=== PATIENT | male | born 1950 | race Caucasian/White ===

== ENCOUNTER 2018-11-30 12:12 | Inpatient (IN) | payer OTHER ==
--- NOTE | 2018-11-30 13:44 | HP ---
CIWA Score Nausea/Vomitin Muscle Tremors: 2 Anxiety: 2 Agitation: 2 Paroxysmal Sweats: 1-Minimal Palms Moist Orientation: 0-Oriented Tacttile Disturbances: 1-Very Mild Itch/Numbness Auditory Disturbances: 1-Very Mild Visual Disturbances: 0-None Headache: 2-Mild CIWA-Ar Total Score: 13 - Admission Criteria OASAS Guidelines: Admission for Medically Managed Detox: Requires at least one of the followin. CIWA greater than 12 2. Seizures within the past 24 hours 3. Delirium tremens within the past 24 hours 4. Hallucinations within the past 24 hours 5. Acute intervention needed for co occurring medical disorder 6. Acute intervention needed for co occurring psychiatric disorder 7. Severe withdrawal that cannot be handled at a lower level of care (continued vomiting, continued diarrhea, abnormal vital signs) requiring intravenous medication and/or fluids 8. Admission ROS BHS - HPI Chief Complaint: i need help to stop drinking alcohol Allergies/Adverse Reactions: Allergies Allergy/AdvReac Type Severity Reaction Status Date / Time No Known Allergies Allergy Verified 11/30/18 15:24 History of Present Illness: this 67 years old male with alcohol dependence seeking detox,withdrawal symptom, seeking detox, last detox 25 years ago unknown facility [facility]tp 35 mgs/day,last medicated today s/p angioplasty with stent 24 years ago weight loss nicotine dependence 1 pack/day anxiety and depression Exam Limitations: No Limitations - Ebola screening Have you traveled outside of the country in the last 21 days: No Have you had contact with anyone from an Ebola affected area: No - Review of Systems Constitutional: Loss of Appetite, Malaise, Night Sweats, Changes in sleep, Weakness, Unintentional Wgt. Loss EENT: reports: Nose Congestion Respiratory: reports: No Symptoms reported Cardiac: reports: No Symptoms Reported GI: reports: Nausea, Poor Appetite, Abdominal cramping : reports: No Symptoms Reported Integumentary: reports: Dryness Neuro: reports: Headache, Tremors Endocrine: reports: No Symptoms Reported Hematology: reports: No Symptoms Reported, Other (hiv) Psychiatric: reports: No Sypmtoms Reported, Judgement Intact, Mood/Affect Appropiate, Orientated x3, Anxious, Depressed Patient History - Patient Medical History Hx Anemia: No Hx Asthma: No Hx Chronic Obstructive Pulmonary Disease (COPD): No Hx Cancer: No Hx Cardiac Disorders: Yes (s/p angioplasty with stent 24 years ago) Hx Congestive Heart Failure: No Hx Hypertension: No Hx Hypercholesterolemia: No Hx Pacemaker: No HX Cerebrovascular Accident: No Hx Seizures: No Hx Dementia: No Hx Diabetes: No Hx Gastrointestinal Disorders: No Hx Liver Disease: Yes (hepatitis c treated) Hx Genitourinary Disorders: No Hx Sexually Transmitted Disorders: No Hx Renal Disease (ESRD): No Hx Thyroid Disease: No Hx Human Immunodeficiency Virus (HIV): Yes (positive on med) Hx Hepatitis C: Yes (treated) Hx Depression: Yes (anxiety) Hx Suicide Attempt: No Hx Bipolar Disorder: No Hx Schizophrenia: No Other Medical History: no sucidal,no homicidal - PPD History Previous Implant?: Yes Documented Results: Positive w/o proof Implanted On Prior [facility] Admission?: No PPD to be Administered?: No - Smoking Cessation Smoking history: Current every day smoker Have you smoked in the past 12 months: Yes Aproximately how many cigarettes per day: 20 Cigars Per Day: 0 Hx Chewing Tobacco Use: No Initiated information on smoking cessation: Yes 'Breaking Loose' booklet given: 11/30/18 - Substance & Tx. History Hx Alcohol Use: Yes Hx Substance Use: No Substance Use Type: Alcohol Hx Substance Use Treatment: Yes (25 years ago,did not recall facility) - Substances Abused Alcohol Route: Oral Frequency: Daily Amount used: 2pints of rum/4 of 24 ozs of beer Age of first use: 13 Date of Last Use: 11/29/18 Family Disease History - Family Disease History Family Disease History: Other: Father (alcohol,) Admission Physical Exam BHS - Vital Signs Vital Signs: Vital Signs Temperature 98.0 F 11/30/18 14:43 Pulse Rate 86 11/30/18 14:43 Respiratory Rate 16 11/30/18 14:43 Blood Pressure 148/92 11/30/18 14:43 O2 Sat by Pulse Oximetry (%) - Physical General Appearance: Yes: Moderate Distress, Tremorous, Irritable, Sweating, Anxious HEENTM: Yes: Normal ENT Inspection, TODD, Pharynx Normal Respiratory: Yes: Lungs Clear, Normal Breath Sounds, No Respiratory Distress Neck: Yes: Within Normal Limits, Supple, Trachea in good position Breast: Yes: Within Normal Limits Cardiology: Yes: Within Normal Limits, Regular Rhythm, Regular Rate, S1, S2 Abdominal: Yes: Within Normal Limits, Normal Bowel Sounds, Non Tender, Soft Genitourinary: Yes: Within Normal Limits Back: Yes: Muscle Spasm Musculoskeletal: Yes: Back pain, Muscle Pain Extremities: Yes: Tremors Neurological: Yes: pediatric acute care unit nurse II-XII NML intact, Fully Oriented, Alert, Motor Strength 5/5 Integumentary: Yes: Dry Lymphatic: Yes: Within Normal Limits - Diagnostic (1) Alcohol dependence with uncomplicated withdrawal Current Visit: Yes Status: Acute (2) Syncope Current Visit: Yes Status: Acute (3) Dehydration Current Visit: Yes Status: Acute (4) Weight loss Current Visit: Yes Status: Acute (5) Nicotine dependence Current Visit: Yes Status: Acute (6) Hepatitis C Current Visit: Yes Status: Acute (7) Methadone maintenance therapy patient Current Visit: Yes Status: Acute (8) Positive PPD, treated Current Visit: Yes Status: Acute (9) Insomnia secondary to depression with anxiety Current Visit: Yes Status: Acute (10) CAD (coronary artery disease) Current Visit: Yes Status: Acute (11) Status post angioplasty with stent Current Visit: Yes Status: Acute (12) HIV (human immunodeficiency virus infection) Current Visit: Yes Status: Acute Cleared for Admission S - Detox or Rehab [facility] Level of Care: Medically Managed Detox Regimen/Protocol: Librium Inpatient Rehab Admission - Rehab Decision to Admit Inpatient rehab admission?: No
[2018-11-30] MEDS ORDERED: MAGNESIUM HYDROX 2400MG/30ML ORAL SUSPENSION 30 ML CUP PO PRN (13:53)
[2018-11-30] MEDS ORDERED: MELATONIN 5 MG TABLETS PO PRN (13:53)
[2018-11-30] MEDS ORDERED: MENTHOL/PHENOL 1 EACH UD MM PRN (13:53)
[2018-11-30] MEDS ORDERED: MAG HYDROX/AL HYDROX/SIMETH 30 ML UNIT-DOSE CUP PO PRN (13:53)
[2018-11-30] MEDS ORDERED: ACETAMINOPHEN 325 MG TABLET (FP) PO PRN ×2 (13:53)
[2018-11-30] MEDS ORDERED: MAGNESIUM CITRATE 300 ML BOTTLE PO PRN (13:53)
[2018-11-30] MEDS ORDERED: chlordiazePOXIDE HCL 25 MG CAPSULE PO PRN (13:53)
[2018-11-30] MEDS ORDERED: METHOCARBAMOL 500 MG TABLET PO PRN (13:53)
[2018-11-30] MEDS ORDERED: BISMUTH SUBSALICYLATE 262 MG/15 ML BTL PO PRN (13:53)
[2018-11-30] MEDS ORDERED: hydrOXYzine PAMOATE 25 MG CAPSULE (FP) PO PRN (13:53)
[2018-11-30] MEDS ORDERED: IBUPROFEN 400 MG TABLET (FP) PO PRN (13:53)
[2018-11-30 15:08] VITALS: BMI 16.7
[2018-11-30] MEDS: NICOTINE 21 MG/24 HOURS TOPICAL PATCH TD SCH (15:34)
[2018-11-30] MEDS: chlordiazePOXIDE HCL 25 MG CAPSULE PO SCH ×2 (17:38→22:17)
[2018-11-30] MEDS: THIAMINE HCL 100 MG TABLET (FP) PO SCH (22:17)
[2018-11-30] MEDS: traZODone HCL 50 MG TABLET (FP) PO SCH (22:17)
[2018-12-01 01:29] LABS: URINE APPEARANCE CLEAR; URINE BILIRUBIN NEGATIVE (NEGATIVE); URINE COLOR YELLOW; URINE GLUCOSE (UA) NEGATIVE (NEGATIVE); URINE KETONE NEGATIVE (NEGATIVE); URINE LEUK ESTERASE NEGATIVE (NEGATIVE); URINE NITRITE NEGATIVE (NEGATIVE); URINE PROTEIN NEGATIVE (NEGATIVE); URINE UROBILINOGEN 0.2 mg/dL (0.2-1.0)
[2018-12-01] MEDS: chlordiazePOXIDE HCL 25 MG CAPSULE PO SCH ×4 (06:29→22:11)
[2018-12-01] MEDS ORDERED: METHADONE HCL 10 MG TABLET PO ONE (08:45)
[2018-12-01] MEDS ORDERED: TRIMETHOBENZAMIDE HCL 200MG/2ML INJ IM PRN (09:09)
[2018-12-01] MEDS ORDERED: TRIMETHOBENZAMIDE HCL 200MG/2ML INJ IM ONE (09:20)
[2018-12-01] MEDS: NICOTINE 21 MG/24 HOURS TOPICAL PATCH TD SCH (09:43)
[2018-12-01] MEDS: ESCITALOPRAM OXALATE 20 MG TABLET (FP) PO SCH (09:44)
[2018-12-01] MEDS: PRENATAL VITAMINS W/ FOLIC ACID TABLET (FP) PO SCH (09:44)
[2018-12-01] MEDS: ELVITEG/COB/EMTRI/TENOF (GENVOYA) TABLET (NF) PO SCH (11:12)
[2018-12-01 12:38] LABS: HEMATOCRIT 40.6 % (35.4-49); HEMOGLOBIN 13.2 GM/dL (11.7-16.9); MCH 33.9 pg (25.7-33.7); MCHC 32.6 g/dl (32.0-35.9); MEAN PLT VOLUME 9.2 fl (7.5-11.1); PLATELET COUNT 110 K/MM3 (134-434); RBC 3.91 M/mm3 (4.00-5.60); WHITE BLOOD COUNT 4.9 K/mm3 (4.0-10.0)
[2018-12-01 13:17] LABS: ALBUMIN 3.1 g/dl (3.4-5.0); ALK PHOS 129 U/L (45-117); ANION GAP 5 MMOL/L (8-16); BILIRUBIN,TOTAL 0.4 mg/dL (0.2-1); BLOOD UREA NITROGEN 7 mg/dL (7-18); CALCIUM 8.4 mg/dL (8.5-10.1); CHLORIDE 100 mmol/L (98-107); CO2 28 mmol/L (21-32); CREATININE 0.8 mg/dL (0.55-1.3); GLUCOSE,RANDOM 88 mg/dL (74-106); POTASSIUM 3.9 mmol/L (3.5-5.1); SGOT/AST 80 U/L (15-37); SGPT/ALT 28 U/L (13-61); SODIUM 133 mmol/L (136-145); TOT PROT 8.9 g/dl (6.4-8.2)
[2018-12-01] MEDS ORDERED: cloNIDine HCL 0.1 MG TABLET PO PRN (14:30)
--- NOTE | 2018-12-01 14:30 | PN ---
S CIWA - CIWA Score Nausea/Vomitin-Mild Nausea/No Vomiting Muscle Tremors: 1-None Visible, but [place] Anxiety: 1-Mildly Anxious Agitation: 3 Paroxysmal Sweats: 2 Orientation: 0-Oriented Tacttile Disturbances: 0-None Auditory Disturbances: 0-None Visual Disturbances: 0-None Headache: 0-None Present CIWA-Ar Total Score: 8 BHS Progress Note (SOAP) Subjective: pt here for alcohol detox, pt on MAT methadone O: Vital Signs - 24 hr 11/30/18 11/30/18 11/30/18 14:43 17:16 21:24 Temperature 98.0 F 97.9 F 97.7 F Pulse Rate 86 111 H 93 H Respiratory 16 16 18 Rate Blood Pressure 148/92 147/89 156/85 12/01/18 12/01/18 12/01/18 00:30 07:11 09:43 Temperature 98.1 F 96.8 F L Pulse Rate 99 H 107 H Respiratory 18 20 18 Rate Blood Pressure 138/78 133/80 12/01/18 13:02 Temperature 97.2 F L Pulse Rate 94 H Respiratory 18 Rate Blood Pressure 146/93 Laboratory Tests 11/30/18 12/01/18 12/01/18 23:29 06:30 06:30 WBC 4.9 RBC 3.91 L Hgb 13.2 Hct 40.6 MCV 104.0 H MCH 33.9 H MCHC 32.6 RDW 17.0 H Plt Count 110 L MPV 9.2 Sodium 133 L Potassium 3.9 Chloride 100 Carbon Dioxide 28 Anion Gap 5 L BUN 7 Creatinine 0.8 Creat Clearance w eGFR 95.85 Random Glucose 88 Calcium 8.4 L Total Bilirubin 0.4 AST 80 H ALT 28 Alkaline Phosphatase 129 H Total Protein 8.9 H Albumin 3.1 L Urine Color Yellow Urine Appearance Clear Urine pH 7.0 Ur Specific [place] 1.006 L Urine Protein Negative Urine Glucose (UA) Negative Urine Ketones Negative Urine Blood Negative Urine Nitrite Negative Urine Bilirubin Negative Urine Urobilinogen 0.2 Ur Leukocyte Esterase Negative a/p: alcohol detox protocol- day #2 today MAT methadone
[2018-12-01] MEDS ORDERED: hydrOXYzine PAMOATE 25 MG CAPSULE (FP) PO PRN (14:31)
[2018-12-01] MEDS: THIAMINE HCL 100 MG TABLET (FP) PO SCH (22:11)
[2018-12-01] MEDS: traZODone HCL 50 MG TABLET (FP) PO SCH (22:11)
[2018-12-02] MEDS: chlordiazePOXIDE HCL 25 MG CAPSULE PO SCH ×2 (06:53→10:32)
[2018-12-02] MEDS: METHADONE HCL 10 MG TABLET PO SCH (06:53)
--- NOTE | 2018-12-02 10:02 | CONSULT ---
[facility] Psychiatric Consult - Data Date of interview: 12/02/18 Admission source: [facility] Identifying data: Patient is a 68 year old single male, father of three, unemployed, domiciled, and is supported by [facility]. This is patient's first admission to detox at [facility]. Patient admitted to for alcohol dependence. Substance Abuse History: Smoking Cessation. Smoking history: Current every day smoker. Have you smoked in the past 12 months: Yes. Aproximately how many cigarettes per day: 20. Cigars Per Day: 0. Hx Chewing Tobacco Use: No. Initiated information on smoking cessation: Yes. 'Breaking Loose' booklet given : 11/30/18. - Substance & Tx. History. Hx Alcohol Use: Yes. Hx Substance Use : No. Substance Use Type: Alcohol. Hx Substance Use Treatment: Yes (25 years ago,did not recall facility). - Substances Abused. Alcohol. Route: Oral. Frequency: Daily. Amount used: 2pints of rum/4 of 24 ozs of beer. Age of first use: 13. Date of Last Use: 11/29/18 Medical History: s/p angioplasty with stent 24 years ago, HIV, Hep C (treated) Psychiatric History: Patient unable to provide a clear cohesive psychiatric history. Patient denies h/o psychiatric hospitalization. States he receives outpatient psychatric care in a clinic located on [facility] but is unable to recall his medications. As per Dr. rS patient came to facility with his prescription bottles of lexapro 20mg and trazodone 50mg. Mr. Taveras is currently receiving methadone maintenance of 30mg daily. Mr. Taveras denies h/o suicide attempt. Self reports diagnosis of depression. At present patient reports feeling fine but is perseverating on receiving his 30mg of methadone. Physical/Sexual Abuse/Trauma History: denies. Mental Status Exam - Mental Status Exam Alert and Oriented to: Time, Place, Person Cognitive Function: Fair Patient Appearance: Well Groomed Mood: Euthymic Affect: Mood Congruent Patient Behavior: Cooperative Speech Pattern: Appropriate Voice Loudness: Normal Thought Process: Goal Oriented Thought Disorder: Not Present Hallucinations: Denies Suicidal Ideation: Denies Homicidal Ideation: Denies Insight/Judgement: Poor Sleep: Fair Appetite: Fair Muscle strength/Tone: Normal Gait/Station: Normal Psychiatric Findings - Problem List ([place] 1, 2,3) (1) Alcohol dependence with uncomplicated withdrawal Current Visit: Yes Status: Acute (2) Methadone maintenance therapy patient Current Visit: Yes Status: Acute (3) Alcohol-induced mood disorder Current Visit: Yes Status: Chronic - Initial Treatment Plan Initial Treatment Plan: Psychoeducation provided. Detoxification in progress. Lexapro 20mg + Trazodone 50mg HS ordered by Dr. Sr. Will continue current medications.
[2018-12-02] MEDS: ELVITEG/COB/EMTRI/TENOF (GENVOYA) TABLET (NF) PO SCH (10:32)
[2018-12-02] MEDS: PRENATAL VITAMINS W/ FOLIC ACID TABLET (FP) PO SCH (10:32)
[2018-12-02] MEDS: NICOTINE 21 MG/24 HOURS TOPICAL PATCH TD SCH (10:32)
[2018-12-02] MEDS: ESCITALOPRAM OXALATE 20 MG TABLET (FP) PO SCH (10:32)
--- NOTE | 2018-12-02 10:42 | PN ---
S CIWA - CIWA Score Nausea/Vomitin Muscle Tremors: 2 Anxiety: 2 Agitation: 2 Paroxysmal Sweats: 1-Minimal Palms Moist Orientation: 0-Oriented Tacttile Disturbances: 1-Very Mild Itch/Numbness Auditory Disturbances: 1-Very Mild Visual Disturbances: 0-None Headache: 2-Mild CIWA-Ar Total Score: 13 BHS Progress Note (SOAP) Subjective: alert,irritable,anxious,interrupted sleep,anxious Objective: 12/02/18 10:40 Vital Signs Temperature 98.2 F 12/02/18 09:23 Pulse Rate 78 12/02/18 09:23 Respiratory Rate 16 12/02/18 09:23 Blood Pressure 110/61 12/02/18 09:23 O2 Sat by Pulse Oximetry (%) Laboratory Last Values WBC 4.9 K/mm3 (4.0-10.0) 12/01/18 06:30 RBC 3.91 M/mm3 (4.00-5.60) L 12/01/18 06:30 Hgb 13.2 GM/dL (11.7-16.9) 12/01/18 06:30 Hct 40.6 % (35.4-49) 12/01/18 06:30 MCV 104.0 fl (80-96) H 12/01/18 06:30 MCH 33.9 pg (25.7-33.7) H 12/01/18 06:30 MCHC 32.6 g/dl (32.0-35.9) 12/01/18 06:30 RDW 17.0 % (11.9-15.9) H 12/01/18 06:30 Plt Count 110 K/MM3 (134-434) L 12/01/18 06:30 MPV 9.2 fl (7.5-11.1) 12/01/18 06:30 Sodium 133 mmol/L (136-145) L 12/01/18 06:30 Potassium 3.9 mmol/L (3.5-5.1) 12/01/18 06:30 Chloride 100 mmol/L (98-107) 12/01/18 06:30 Carbon Dioxide 28 mmol/L (21-32) 12/01/18 06:30 Anion Gap 5 MMOL/L (8-16) L 12/01/18 06:30 BUN 7 mg/dL (7-18) 12/01/18 06:30 Creatinine 0.8 mg/dL (0.55-1.3) 12/01/18 06:30 Creat Clearance w eGFR 95.85 (>60) 12/01/18 06:30 Random Glucose 88 mg/dL (74-106) 12/01/18 06:30 Calcium 8.4 mg/dL (8.5-10.1) L 12/01/18 06:30 Total Bilirubin 0.4 mg/dL (0.2-1) 12/01/18 06:30 AST 80 U/L (15-37) H 12/01/18 06:30 ALT 28 U/L (13-61) 12/01/18 06:30 Alkaline Phosphatase 129 U/L (45-117) H 12/01/18 06:30 Total Protein 8.9 g/dl (6.4-8.2) H 12/01/18 06:30 Albumin 3.1 g/dl (3.4-5.0) L 12/01/18 06:30 Urine Color Yellow 11/30/18 23:29 Urine Appearance Clear 11/30/18 23:29 Urine pH 7.0 (5.0-8.0) 11/30/18 23:29 Ur Specific [place] 1.006 (1.010-1.035) L 11/30/18 23:29 Urine Protein Negative (NEGATIVE) 11/30/18 23:29 Urine Glucose (UA) Negative (NEGATIVE) 11/30/18 23:29 Urine Ketones Negative (NEGATIVE) 11/30/18 23:29 Urine Blood Negative (NEGATIVE) 11/30/18 23:29 Urine Nitrite Negative (NEGATIVE) 11/30/18 23:29 Urine Bilirubin Negative (NEGATIVE) 11/30/18 23:29 Urine Urobilinogen 0.2 mg/dL (0.2-1.0) 11/30/18 23:29 Ur Leukocyte Esterase Negative (NEGATIVE) 11/30/18 23:29 RPR Titer Nonreactive (NONREACTIVE) 12/01/18 06:30 Assessment: 12/02/18 10:41 withdrawal symptom Plan: continue detox
--- NOTE | 2018-12-02 11:52 | EKG ---
Test Reason : Blood Pressure : / mmHG Vent. Rate : 096 BPM Atrial Rate : 096 BPM P-R Int : 138 ms QRS Dur : 080 ms QT Int : 400 ms P-R-T Axes : 071 025 040 degrees QTc Int : 505 ms NORMAL SINUS RHYTHM POSSIBLE LEFT ATRIAL ENLARGEMENT SEPTAL INFARCT , AGE UNDETERMINED PROLONGED QT ABNORMAL ECG NO PREVIOUS ECGS AVAILABLE Confirmed by CASIE SCHOFIELD, FRANSICO ([id number]) on 12/02/2018 11:52:02 AM Referred By: ANNIE ACUNA Confirmed By:FRANSICO JASON MD
[2018-12-02] MEDS ORDERED: chlordiazePOXIDE HCL 10 MG CAPSULE PO PRN (17:00)
[2018-12-02] MEDS: chlordiazePOXIDE HCL 10 MG CAPSULE PO SCH ×2 (18:13→23:06)
[2018-12-02] MEDS: traZODone HCL 50 MG TABLET (FP) PO SCH (23:06)
[2018-12-02] MEDS: THIAMINE HCL 100 MG TABLET (FP) PO SCH (23:07)
[2018-12-03] MEDS: chlordiazePOXIDE HCL 10 MG CAPSULE PO SCH ×3 (05:59→17:32)
[2018-12-03] MEDS: METHADONE HCL 10 MG TABLET PO SCH (06:50)
--- NOTE | 2018-12-03 09:49 | PN ---
BHS Progress Note (SOAP) Subjective: drowsy,pain in the body,sleepy Objective: 12/03/18 09:47 Vital Signs Temperature 96.8 F L 12/03/18 06:00 Pulse Rate 102 H 12/03/18 06:00 Respiratory Rate 18 12/03/18 06:30 Blood Pressure 121/66 12/03/18 06:00 O2 Sat by Pulse Oximetry (%) Assessment: 12/03/18 09:47 blood for ammonia level refused librium and methadone this morning Plan: continue close monitoring,awaiting for ammonia level
[2018-12-03] MEDS: ELVITEG/COB/EMTRI/TENOF (GENVOYA) TABLET (NF) PO SCH (10:43)
[2018-12-03] MEDS: PRENATAL VITAMINS W/ FOLIC ACID TABLET (FP) PO SCH (10:43)
[2018-12-03] MEDS: ESCITALOPRAM OXALATE 20 MG TABLET (FP) PO SCH (10:43)
[2018-12-03] MEDS: NICOTINE 21 MG/24 HOURS TOPICAL PATCH TD SCH (10:43)
[2018-12-03] MEDS ORDERED: LACTULOSE 20 GM/30 ML UDC (FOR ORAL USE ONLY) PO ONE (17:30)
[2018-12-03] MEDS: THIAMINE HCL 100 MG TABLET (FP) PO SCH (22:50)
[2018-12-03] MEDS: traZODone HCL 50 MG TABLET (FP) PO SCH (22:50)
[2018-12-04] MEDS: chlordiazePOXIDE HCL 10 MG CAPSULE PO SCH ×2 (06:07→18:07)
[2018-12-04] MEDS ORDERED: ELVITEG/COB/EMTRI/TENOFO (STRIBILD) TABLET -NF PO SCH (11:15)
[2018-12-04] MEDS: ELVITEG/COB/EMTRI/TENOF (GENVOYA) TABLET (NF) PO SCH ×2 (12:04→13:44)
[2018-12-04] MEDS: ESCITALOPRAM OXALATE 20 MG TABLET (FP) PO SCH (12:06)
[2018-12-04] MEDS: PRENATAL VITAMINS W/ FOLIC ACID TABLET (FP) PO SCH (12:06)
[2018-12-04] MEDS: METHADONE HCL 10 MG TABLET PO SCH (12:06)
[2018-12-04] MEDS: NICOTINE 21 MG/24 HOURS TOPICAL PATCH TD SCH (12:07)
--- NOTE | 2018-12-04 12:13 | PN ---
BHS Progress Note (SOAP) Subjective: Drowsy, shakes, sweats, back pain Objective: 12/04/18 12:10 Vital Signs - 8 hr 12/04/18 12/04/18 08:23 09:37 Temperature 97.5 F L 97.9 F Pulse Rate 84 111 H Respiratory 20 16 Rate Blood Pressure 112/64 121/73 Laboratory Last Values WBC 4.9 K/mm3 (4.0-10.0) 12/01/18 06:30 RBC 3.91 M/mm3 (4.00-5.60) L 12/01/18 06:30 Hgb 13.2 GM/dL (11.7-16.9) 12/01/18 06:30 Hct 40.6 % (35.4-49) 12/01/18 06:30 MCV 104.0 fl (80-96) H 12/01/18 06:30 MCH 33.9 pg (25.7-33.7) H 12/01/18 06:30 MCHC 32.6 g/dl (32.0-35.9) 12/01/18 06:30 RDW 17.0 % (11.9-15.9) H 12/01/18 06:30 Plt Count 110 K/MM3 (134-434) L 12/01/18 06:30 MPV 9.2 fl (7.5-11.1) 12/01/18 06:30 Sodium 133 mmol/L (136-145) L 12/01/18 06:30 Potassium 3.9 mmol/L (3.5-5.1) 12/01/18 06:30 Chloride 100 mmol/L (98-107) 12/01/18 06:30 Carbon Dioxide 28 mmol/L (21-32) 12/01/18 06:30 Anion Gap 5 MMOL/L (8-16) L 12/01/18 06:30 BUN 7 mg/dL (7-18) 12/01/18 06:30 Creatinine 0.8 mg/dL (0.55-1.3) 12/01/18 06:30 Creat Clearance w eGFR 95.85 (>60) 12/01/18 06:30 Random Glucose 88 mg/dL (74-106) 12/01/18 06:30 Calcium 8.4 mg/dL (8.5-10.1) L 12/01/18 06:30 Total Bilirubin 0.4 mg/dL (0.2-1) 12/01/18 06:30 AST 80 U/L (15-37) H 12/01/18 06:30 ALT 28 U/L (13-61) 12/01/18 06:30 Alkaline Phosphatase 129 U/L (45-117) H 12/01/18 06:30 Ammonia 38.20 umol/L (11-32) H 12/03/18 10:00 Total Protein 8.9 g/dl (6.4-8.2) H 12/01/18 06:30 Albumin 3.1 g/dl (3.4-5.0) L 12/01/18 06:30 Urine Color Yellow 11/30/18 23:29 Urine Appearance Clear 11/30/18 23:29 Urine pH 7.0 (5.0-8.0) 11/30/18 23:29 Ur Specific [place] 1.006 (1.010-1.035) L 11/30/18 23:29 Urine Protein Negative (NEGATIVE) 11/30/18 23:29 Urine Glucose (UA) Negative (NEGATIVE) 11/30/18 23:29 Urine Ketones Negative (NEGATIVE) 11/30/18 23:29 Urine Blood Negative (NEGATIVE) 11/30/18 23:29 Urine Nitrite Negative (NEGATIVE) 11/30/18 23:29 Urine Bilirubin Negative (NEGATIVE) 11/30/18 23:29 Urine Urobilinogen 0.2 mg/dL (0.2-1.0) 11/30/18 23:29 Ur Leukocyte Esterase Negative (NEGATIVE) 11/30/18 23:29 RPR Titer Nonreactive (NONREACTIVE) 12/01/18 06:30 Labs noted Assessment: 12/04/18 12:10 Withdrawal sx Increased ammonia Plan: Continue detox Repeat ammonia level on 12/06 Continue lactulose
[2018-12-04] MEDS: traZODone HCL 50 MG TABLET (FP) PO SCH (23:33)
[2018-12-04] MEDS: THIAMINE HCL 100 MG TABLET (FP) PO SCH (23:33)
[2018-12-05 09:53] VITALS: BP 110/63; PULSE 85; TEMP 98.1
--- NOTE | 2018-12-05 10:38 | DS ---
[facility] Detox Discharge Summary Admission Date: 11/30/18 Discharge Date: 12/05/18 - History Present History: Alcohol Dependence - Physical Exam Results Vital Signs: Vital Signs Temperature 98.1 F 12/05/18 09:52 Pulse Rate 85 12/05/18 09:52 Respiratory Rate 20 12/05/18 09:52 Blood Pressure 110/63 12/05/18 09:52 O2 Sat by Pulse Oximetry (%) - Treatment Hospital Course: Detox Protocol Followed, Detoxed Safely, Responded well, Discharged Condition Good, Rehab Referral Accepted - Medication Discharge Medications: Ambulatory Orders Elviteg/Cob/Emtri/Tenof Alafen [Genvoya (Non-Formulary)] 1 each PO DAILY Escitalopram Oxalate [Lexapro -] 20 mg PO DAILY 11/30/18 Multivitamin [One-Daily Multi-Vitamin] 1 each PO DAILY 11/30/18 traZODone HCL [Desyrel -] 50 mg PO HS 11/30/18 - Diagnosis (1) Alcohol dependence with uncomplicated withdrawal Current Visit: Yes Status: Chronic (2) CAD (coronary artery disease) Current Visit: Yes Status: Acute (3) Dehydration Current Visit: Yes Status: Acute (4) HIV (human immunodeficiency virus infection) Current Visit: Yes Status: Chronic Qualifiers: HIV symptom status: unspecified Qualified Code(s): B20 - Human immunodeficiency virus [HIV] disease (5) Hepatitis C Current Visit: Yes Status: Acute (6) Insomnia secondary to depression with anxiety Current Visit: Yes Status: Acute (7) Methadone maintenance therapy patient Current Visit: Yes Status: Chronic (8) Nicotine dependence Current Visit: Yes Status: Chronic Qualifiers: Nicotine product type: cigarettes Substance use status: uncomplicated Qualified Code(s): F17.210 - Nicotine dependence, cigarettes, uncomplicated (9) Positive PPD, treated Current Visit: Yes Status: Acute (10) Status post angioplasty with stent Current Visit: Yes Status: Acute (11) Syncope Current Visit: Yes Status: Acute (12) Weight loss Current Visit: Yes Status: Acute (13) Alcohol-induced mood disorder Current Visit: Yes Status: Chronic - AMA Did Patient Leave Against Medical Advice: No (going to [facility] for reinstatment tomorrow)
[2018-12-05] MEDS: ELVITEG/COB/EMTRI/TENOF (GENVOYA) TABLET (NF) PO SCH (10:50)
[2018-12-05] MEDS: ESCITALOPRAM OXALATE 20 MG TABLET (FP) PO SCH (10:50)
[2018-12-05] MEDS: METHADONE HCL 10 MG TABLET PO SCH (10:50)
[2018-12-05] MEDS: PRENATAL VITAMINS W/ FOLIC ACID TABLET (FP) PO SCH (10:50)
[2018-12-05] MEDS: NICOTINE 21 MG/24 HOURS TOPICAL PATCH TD SCH (11:03)
== END 2018-12-05 11:03 | disposition home or self-care (01) | DRG 897 ==
LOC: EDBD → YASAS 12:12 → Y6N 13:54
PROVIDERS: ADMIT Surgery; ATTEND Surgery
PROC: HZ2ZZZZ Detoxification Services for Substance Abuse Treatment (ICD-10-PCS; principal; 2018-11-30)
DX: F10.230 Alcohol dependence with withdrawal, uncomplicated (principal); F11.20 Opioid dependence, uncomplicated; Z68.1 Body mass index [BMI] 19.9 or less, adult; F17.220 Nicotine dependence, chewing tobacco, uncomplicated; F51.05 Insomnia due to other mental disorder; F10.24 Alcohol dependence with alcohol-induced mood disorder; Z21 Asymptomatic human immunodeficiency virus [HIV] infection status; I25.10 Atherosclerotic heart disease of native coronary artery without angina pectoris; I10 Essential (primary) hypertension; Z95.5 Presence of coronary angioplasty implant and graft; R55 Syncope and collapse; E86.0 Dehydration; B18.2 Chronic viral hepatitis C; R76.11 Nonspecific reaction to tuberculin skin test without active tuberculosis; R63.4 Abnormal weight loss
CPT/HCPCS: 36415; 71045-TC-FY; 80053; 81003; 82140; 85027; 86593; 93005; 93010; J0735